=== PATIENT | male | born 1965 | race Asian ===

== ENCOUNTER 2023-01-05 03:26 | Emergency (ER) | payer SELFPAY ==
[~2023-01-05] VITALS: Ht 182.9 cm; Wt 99.8 kg
[2023-01-05 03:50] VITALS: BP 194/115; PULSE 78; RESP 16; TEMP 98.2; O2SAT 97
[2023-01-05] MEDS ORDERED: KETOROLAC 30 MG/ML VIAL IM ONE (04:10)
[2023-01-05] MEDS ORDERED: COLCHICINE 0.6 MG TAB PO ONE ×2 (04:10→04:50)
[2023-01-05] MEDS ORDERED: predniSONE 20 MG TAB PO ONE (04:10)
[2023-01-05] MEDS ORDERED: IBUP-2213 PO (04:45)
[2023-01-05] MEDS ORDERED: METH4TAB1 PO (04:45)
[2023-01-05] MEDS ORDERED: MORPHINE SULFATE 4 MG/ML SYR IM ONE (05:05)
[2023-01-05] MEDS ORDERED: ACET-5636 PO (05:16)
[2023-01-05] MEDS ORDERED: CEPH-588 PO (05:16)
[2023-01-05] MEDS ORDERED: CLONIDINE HYDROCHLORIDE 0.1 MG TAB PO ONE (05:50)
[2023-01-05] MEDS ORDERED: LISI5TAB18 PO (06:47)
[2023-01-05 06:54] VITALS: BP 209/99; PULSE 70; RESP 16; O2SAT 99
== END 2023-01-05 06:54 | disposition home or self-care (01) ==
LOC: MED 03:26
DX: M10.041 Idiopathic gout, right hand (principal); I10 Essential (primary) hypertension; Z79.899 Other long term (current) drug therapy
CPT/HCPCS: 96372; 99285; J1885; J2270; J7512